=== PATIENT | female | born 1950 | race Two or more races ===

== ENCOUNTER 2022-01-18 05:35 | Day surgery (SDC) | payer OTHER | END 2022-01-18 10:40 | disposition home or self-care (01) | LOC: AMB-ENDOS 05:35 | PROVIDERS: ATTEND Internal Medicine Gastroenterology | DX: K31.84 Gastroparesis (principal) ==

== ENCOUNTER 2024-10-25 06:05 | Day surgery (SDC) | payer OTHER ==
[2024-10-25] MEDS ORDERED: MIDAZOLAM HCL 2 MG/2 ML VIAL IV STA (11:09)
[2024-10-25] MEDS ORDERED: FentaNYL CITRATE/PF 50MCG/ML 2ML VIAL IJ STA (11:10)
== END 2024-10-25 12:20 | disposition home or self-care (01) ==
LOC: AMB-ENDOS 06:05
PROVIDERS: ATTEND Internal Medicine Gastroenterology
DX: D13.2 Benign neoplasm of duodenum (principal); Z88.0 Allergy status to penicillin